=== PATIENT | male | born 1990 | race Two or more races ===

== ENCOUNTER 2019-04-20 12:14 | Emergency (ER) | payer OTHER ==
[~2019-04-20] VITALS: Ht 180.3 cm; Wt 96.2 kg
[2019-04-20] MEDS ORDERED: SYNTHROID25 MCG PO (14:41)
[2019-04-20] MEDS ORDERED: BUSPIRONE HCL15 MG PO (14:42)
== END 2019-04-20 16:35 | disposition home or self-care (01) ==
LOC: ED 12:14
DX: J02.9 Acute pharyngitis, unspecified (principal)
CPT/HCPCS: 87081; 87147; 87880; 99283; A9270